=== PATIENT | male | born 1980 | race Caucasian/White ===

== ENCOUNTER → 2016-04-12 | Outpatient (REF) | payer MEDICARE, MEDICAID ==
[~2016-04-12] MED LIST: ABIL400I IM; CONC36TA4 PO; DEPA500T2 PO; GAS-80CH PO; INVE9TAB PO; TRAZ50TA4 PO
[2016-04-12 10:31] LABS: BASO % 0.6 % (0.0-1.0); EOS # 0.1 K/mm3 (0.0-0.50); EOS % 1.6 % (0.0-3.0); LARGE UNSTAINED CELL # 0.1 K/mm3 (0.0-0.4); LARGE UNSTAINED CELL % 1.8 % (0.0-4.0); LYMPH # 2.3 K/mm3 (1.5-4.5); LYMPH % 34.2 % (24.0-44.0); MEAN CORPUSCULAR HEMOGLOBIN 29.5 pg (27.0-33.0); MEAN CORPUSCULAR HGB CONC 34.1 g/dl (32.0-36.5); MEAN CORPUSCULAR VOLUME 86.7 fl (80.0-96.0); MONO # 0.3 K/mm3 (0.0-0.8); MONO % 4.8 % (0.0-5.0); NEUTROPHILS # 3.7 K/mm3 (1.8-7.7); NEUTROPHILS % 57.1 % (36.0-66.0); PLATELET COUNT, AUTOMATED 217 k/mm3 (150-450); RED CELL DISTRIBUTION WIDTH 12.5 % (11.5-14.5); WHITE BLOOD COUNT 6.4 K/mm3 (4.0-10.0)
[2016-04-12 11:03] LABS: ALBUMIN/GLOBULIN RATIO 1.18 (1.00-1.93); ALKALINE PHOSPHATASE 76 U/L (45-117); ALT/SGPT 52 U/L (12-78); ANION GAP 8 MEQ/L (8-16); AST/SGOT 21 U/L (15-37); BILIRUBIN,TOTAL 0.5 MG/DL (0.2-1.0); BLOOD UREA NITROGEN 13 MG/DL (7-18); CALCIUM LEVEL 8.8 MG/DL (8.5-10.1); CARBON DIOXIDE LEVEL 30 MEQ/L (21-32); CHLORIDE LEVEL 107 MEQ/L (98-107); CHOLESTEROL LEVEL 169 MG/DL (<200); CREATININE FOR GFR 1.05 MG/DL (0.70-1.30); GLOMERULAR FILTRATION RATE > 60.0 (>60); GLUCOSE, FASTING 100 MG/DL (70-105); POTASSIUM SERUM 4.1 MEQ/L (3.5-5.1); SODIUM LEVEL 145 MEQ/L (136-145); TOTAL PROTEIN 7.4 GM/DL (6.4-8.2); TRIGLYCERIDES LEVEL 51 MG/DL (<150)
== END ==
LOC: M SFHCPLAZ 08:24
PROVIDERS: ATTEND Nurse Practitioner Family
DX: Z00.00 Encounter for general adult medical examination without abnormal findings (principal); F41.8 Other specified anxiety disorders; Z13.220 Encounter for screening for lipoid disorders

== ENCOUNTER → 2017-03-07 | Outpatient (REF) | payer MEDICARE, MEDICAID ==
[2017-03-07 10:57] LABS: BASO % 0.5 % (0.0-1.0); EOS # 0.2 10^3/uL (0.0-0.50); HEMATOCRIT 48.8 % (42.0-52.0); HEMOGLOBIN 16.3 g/dl (14.0-18.0); IMMATURE GRANULOCYTE % 0.5 % (0-0); LYMPH # 2.4 10^3/uL (1.5-4.5); MEAN CORPUSCULAR HEMOGLOBIN 28.5 pg (27.0-33.0); MEAN CORPUSCULAR HGB CONC 33.4 g/dl (32.0-36.5); MEAN CORPUSCULAR VOLUME 85.5 fl (80.0-96.0); MONO # 0.7 10^3/uL (0.0-0.8); MONO % 7.6 % (0.0-5.0); NEUTROPHILS # 5.2 10^3/uL (1.8-7.7); NEUTROPHILS % 61.4 % (36.0-66.0); PLATELET COUNT, AUTOMATED 225 10^3/uL (150-450); RED BLOOD COUNT 5.71 10^6/uL (4.30-6.10); RED CELL DISTRIBUTION WIDTH 13.1 % (11.5-14.5); WHITE BLOOD COUNT 8.5 10^3/uL (4.0-10.0)
[2017-03-07 11:17] LABS: ALBUMIN 4.2 GM/DL (3.2-5.2); ALBUMIN/GLOBULIN RATIO 1.24 (1.00-1.93); ALKALINE PHOSPHATASE 74 U/L (45-117); ALT/SGPT 53 U/L (12-78); ANION GAP 7 MEQ/L (8-16); AST/SGOT 22 U/L (7-37); BILIRUBIN,TOTAL 0.6 MG/DL (0.2-1.0); BLOOD UREA NITROGEN 19 MG/DL (7-18); CALCIUM LEVEL 9.3 MG/DL (8.5-10.1); CARBON DIOXIDE LEVEL 32 MEQ/L (21-32); CHLORIDE LEVEL 104 MEQ/L (98-107); CREATININE FOR GFR 1.09 MG/DL (0.70-1.30); GLOMERULAR FILTRATION RATE > 60.0 (>60); GLUCOSE, FASTING 103 MG/DL (70-105); POTASSIUM SERUM 4.6 MEQ/L (3.5-5.1); SODIUM LEVEL 143 MEQ/L (136-145); TOTAL PROTEIN 7.6 GM/DL (6.4-8.2)
== END ==
LOC: M SFHCPLAZ 07:28
DX: F41.8 Other specified anxiety disorders (principal)
CPT/HCPCS: 80053

== ENCOUNTER → 2017-08-16 | Outpatient (REF) | payer MEDICARE, MEDICAID ==
[2017-08-16 11:56] LABS: BASO % 0.5 % (0.0-1.0); EOS # 0.2 10^3/uL (0.0-0.50); EOS % 2.2 % (0.0-3.0); HEMATOCRIT 48.5 % (42.0-52.0); HEMOGLOBIN 16.5 g/dl (13.5-17.5); IMMATURE GRANULOCYTE % 0.4 % (0-3.0); LYMPH # 2.5 10^3/uL (1.5-4.5); LYMPH % 32.9 % (24.0-44.0); MEAN CORPUSCULAR HEMOGLOBIN 28.9 pg (27.0-33.0); MEAN CORPUSCULAR VOLUME 85.1 fl (80.0-96.0); MONO # 0.7 10^3/uL (0.0-0.8); MONO % 8.8 % (0.0-5.0); NEUTROPHILS # 4.2 10^3/uL (1.8-7.7); NEUTROPHILS % 55.2 % (36.0-66.0); PLATELET COUNT, AUTOMATED 225 10^3/uL (150-450); RED CELL DISTRIBUTION WIDTH 12.6 % (11.5-14.5); WHITE BLOOD COUNT 7.6 10^3/uL (4.0-10.0)
[2017-08-16 12:38] LABS: ALBUMIN 4.2 GM/DL (3.2-5.2); ALBUMIN/GLOBULIN RATIO 1.24 (1.00-1.93); ALKALINE PHOSPHATASE 69 U/L (45-117); ALT/SGPT 46 U/L (12-78); ANION GAP 8 MEQ/L (8-16); AST/SGOT 20 U/L (7-37); BILIRUBIN,TOTAL 0.5 MG/DL (0.2-1.0); BLOOD UREA NITROGEN 16 MG/DL (7-18); CALCIUM LEVEL 9.3 MG/DL (8.5-10.1); CARBON DIOXIDE LEVEL 30 MEQ/L (21-32); CHLORIDE LEVEL 105 MEQ/L (98-107); CREATININE FOR GFR 1.24 MG/DL (0.70-1.30); GLOMERULAR FILTRATION RATE > 60.0 (>60); GLUCOSE, FASTING 117 MG/DL (70-100); POTASSIUM SERUM 4.2 MEQ/L (3.5-5.1); SODIUM LEVEL 143 MEQ/L (136-145); TOTAL PROTEIN 7.6 GM/DL (6.4-8.2)
[2017-08-16 12:42] LABS: TOTAL 25(OH) VITAMIN D 24.7 NG/ML (30.0-100.0)
[2017-08-16 13:37] LABS: ESTIMATED AVERAGE GLUCOSE 108 MG/DL (60-110); HEMOGLOBIN A1c 5.4 %
== END ==
LOC: M SFHCPLAZ 08:08
DX: Z51.81 Encounter for therapeutic drug level monitoring (principal); F06.34 Mood disorder due to known physiological condition with mixed features; Z79.899 Other long term (current) drug therapy
CPT/HCPCS: 80053

== ENCOUNTER → 2019-12-10 | Outpatient (CLI) | payer MEDICARE ==
[~2019-12-10] MED LIST changes: +TRAZ-252 PO; -TRAZ50TA4 PO
[2019-12-10 13:40] LABS: BASO % 0.4 % (0.0-1.0); EOS # 0.1 10^3/uL (0.0-0.5); EOS % 1.9 % (0.0-3.0); HEMATOCRIT 49.4 % (42.0-52.0); HEMOGLOBIN 16.6 g/dl (13.5-17.5); LYMPH # 2.6 10^3/uL (1.5-5.0); LYMPH % 35.2 % (24.0-44.0); MEAN CORPUSCULAR HGB CONC 33.6 g/dl (32.0-36.5); MEAN CORPUSCULAR VOLUME 89.2 fl (80.0-96.0); MONO # 0.6 10^3/uL (0.0-0.8); MONO % 7.8 % (0.0-5.0); NEUTROPHILS % 54.3 % (36.0-66.0); PLATELET COUNT, AUTOMATED 202 10^3/uL (150-450); RED BLOOD COUNT 5.54 10^6/uL (4.30-6.10); WHITE BLOOD COUNT 7.4 10^3/uL (4.0-10.0)
[2019-12-10 13:56] LABS: HEMOGLOBIN A1c 5.2 %
[2019-12-10 14:16] LABS: ALBUMIN 4.3 GM/DL (3.2-5.2); ALT/SGPT 65 U/L (12-78); BILIRUBIN,TOTAL 0.5 MG/DL (0.2-1.0); BLOOD UREA NITROGEN 16 MG/DL (7-18); CALCIUM LEVEL 9.3 MG/DL (8.5-10.1); CARBON DIOXIDE LEVEL 30 MEQ/L (21-32); CHLORIDE LEVEL 105 MEQ/L (98-107); CHOLESTEROL LEVEL 201 MG/DL (<200); CHOLESTEROL RISK RATIO 5.583 (<5); CREATININE FOR GFR 0.91 MG/DL (0.70-1.30); GLOMERULAR FILTRATION RATE > 60.0 (>60); GLUCOSE, FASTING 82 MG/DL (70-100); HDL CHOLESTEROL 36 MG/DL (>40); LDL CHOLESTEROL 152 MG/DL (<100); NON-HDL-C 165 MG/DL; POTASSIUM SERUM 4.1 MEQ/L (3.5-5.1); SODIUM LEVEL 139 MEQ/L (136-145); TOTAL PROTEIN 7.8 GM/DL (6.4-8.2); TRIGLYCERIDES LEVEL 66 MG/DL (<150)
[2019-12-10 14:18] LABS: TOTAL 25(OH) VITAMIN D 37.6 NG/ML (30.0-100.0); VITAMIN B12 LEVEL 469 PG/ML (247-911)
[2019-12-14 16:11] LABS: ARIPIPRAZOLE (ABILIFY) LEVEL 193.8 ng/mL (.)
== END ==
LOC: M WUC 09:58
PROVIDERS: ATTEND Nurse Practitioner Psychiatric/Mental Health
DX: F90.0 Attention-deficit hyperactivity disorder, predominantly inattentive type (principal)
CPT/HCPCS: 36415; 80053; 80061; 80360; 82306; 82607; 83036; 84439; 84443; 85025; G0480

== ENCOUNTER → 2021-02-01 | Outpatient (REF) | payer MEDICARE | LOC: M LAB REF 09:53 | PROVIDERS: ATTEND Physician Assistant Medical | DX: J02.9 Acute pharyngitis, unspecified (principal) ==

== ENCOUNTER → 2021-10-21 | Outpatient (CLI) | payer MEDICARE ==
[2021-10-21 10:42] LABS: BASO % 0.5 % (0.0-1.0); EOS # 0.2 10^3/uL (0.0-0.5); HEMATOCRIT 48.6 % (42.0-52.0); HEMOGLOBIN 16.4 g/dl (13.5-17.5); LYMPH % 37.6 % (24.0-44.0); MEAN CORPUSCULAR HEMOGLOBIN 29.3 pg (27.0-33.0); MEAN CORPUSCULAR HGB CONC 33.7 g/dl (32.0-36.5); MEAN CORPUSCULAR VOLUME 86.9 fl (80.0-96.0); MONO # 0.8 10^3/uL (0.0-0.8); MONO % 9.4 % (2.0-8.0); NEUTROPHILS % 50.1 % (36.0-66.0); PLATELET COUNT, AUTOMATED 199 10^3/uL (150-450); RED BLOOD COUNT 5.59 10^6/uL (4.30-6.10)
[2021-10-21 11:11] LABS: HEMOGLOBIN A1c 5.4 %
[2021-10-21 11:50] LABS: ALBUMIN 3.8 GM/DL (3.2-5.2); ALT/SGPT 33 U/L (12-78); BILIRUBIN,TOTAL 0.6 MG/DL (0.2-1.0); BLOOD UREA NITROGEN 19 MG/DL (7-18); CARBON DIOXIDE LEVEL 28 MEQ/L (21-32); CHLORIDE LEVEL 106 MEQ/L (98-107); CHOLESTEROL LEVEL 195 MG/DL (<200); CHOLESTEROL RISK RATIO 5.909 (<5); CREATININE FOR GFR 1.06 MG/DL (0.70-1.30); GLOMERULAR FILTRATION RATE > 60.0 (>60); GLUCOSE, FASTING 96 MG/DL (70-100); HDL CHOLESTEROL 33 MG/DL (>40); LDL CHOLESTEROL 146 MG/DL (<100); NON-HDL-C 162 MG/DL; POTASSIUM SERUM 4.1 MEQ/L (3.5-5.1); SODIUM LEVEL 142 MEQ/L (136-145); TOTAL PROTEIN 7.5 GM/DL (6.4-8.2); TRIGLYCERIDES LEVEL 81 MG/DL (<150)
== END ==
LOC: M PLALAB 07:52
DX: F90.2 Attention-deficit hyperactivity disorder, combined type (principal); Z79.899 Other long term (current) drug therapy

== ENCOUNTER 2021-11-14 11:18 | Emergency (ER) | payer OTHER, MEDICARE ==
[~2021-11-14] VITALS: Ht 188 cm; Wt 83.1 kg
[2021-11-14] MEDS ORDERED: LIDOCAINE 5% (LIDODERM) PATCH TD ONE (13:20)
[2021-11-14] MEDS ORDERED: KETOROLAC 60MG 2ML VIAL IM ONE (13:20)
[2021-11-14] MEDS ORDERED: METH-1165 PO (14:55)
[2021-11-14 15:05] VITALS: BP 128/74
[2021-11-15] MEDS ORDERED: **NOTE PATIENT COMMENT** MISC XX ONE (01:00)
== END 2021-11-14 15:06 | disposition home or self-care (01) ==
LOC: M ED 11:18
DX: M54.50 Low back pain, unspecified (principal); E78.5 Hyperlipidemia, unspecified; J45.909 Unspecified asthma, uncomplicated; K21.9 Gastro-esophageal reflux disease without esophagitis; Z88.1 Allergy status to other antibiotic agents; Z88.2 Allergy status to sulfonamides; Z88.8 Allergy status to other drugs, medicaments and biological substances; Z91.02 Food additives allergy status
CPT/HCPCS: 72110; 96372; 99283; J1885

== ENCOUNTER → 2022-02-23 | Outpatient (REF) | payer BC ==
[~2022-02-23] MED LIST changes: +METH-1165 PO
[2022-02-23 14:38] LABS: RSV AMPLIFICATION NEGATIVE (NEGATIVE)
== END ==
LOC: M LAB REF 12:12
PROVIDERS: ATTEND Physician Assistant
DX: R50.9 Fever, unspecified (principal)

== ENCOUNTER → 2022-12-26 | Outpatient (CLI) | payer MEDICARE ==
[2022-12-26 12:22] LABS: ALBUMIN 4.1 G/DL (3.2-5.2); ALKALINE PHOSPHATASE 64 U/L (46-116); ALT/SGPT 42 U/L (7.0-40); AST/SGOT 17 U/L (<34); BILIRUBIN,TOTAL 0.8 MG/DL (0.3-1.2); BLOOD UREA NITROGEN 18 MG/DL (9-23); CALCIUM LEVEL 8.9 MG/DL (8.5-10.1); CARBON DIOXIDE LEVEL 29 MMOL/L (20-31); CHLORIDE LEVEL 103 MMOL/L (98-107); CREATININE FOR GFR 0.99 MG/DL (0.70-1.30); GLOMERULAR FILTRATION RATE > 60.0 (>60); GLUCOSE, FASTING 96 MG/DL (60-100); POTASSIUM SERUM 4.2 MMOL/L (3.5-5.1); SODIUM LEVEL 139 MMOL/L (136-145); TOTAL 25(OH) VITAMIN D 104.1 NG/ML (20.0-100.0); TOTAL PROTEIN 6.9 G/DL (5.7-8.2)
[2022-12-26 15:34] LABS: ESTRADIOL 30.8 PG/ML (<39.8); TESTOSTERONE 435 NG/DL (241-827)
== END ==
LOC: M PLALAB 08:33
PROVIDERS: ATTEND Nurse Practitioner Adult Health
DX: E55.9 Vitamin D deficiency, unspecified (principal); F41.8 Other specified anxiety disorders; F52.4 Premature ejaculation

== ENCOUNTER → 2023-02-21 | Outpatient (REF) | payer MEDICARE | LOC: M LAB REF 16:41 | PROVIDERS: ATTEND Physician Assistant | DX: J02.9 Acute pharyngitis, unspecified (principal) ==

== ENCOUNTER 2023-05-28 12:45 | Inpatient (IN) | payer MEDICARE ==
[~2023-05-28] VITALS: Ht 188 cm; Wt 78.6 kg
[2023-05-28] MEDS ORDERED: VYVA50CA4 PO (13:13)
[2023-05-28] MEDS ORDERED: CIAL5TAB PO (13:41)
[2023-05-28] MEDS ORDERED: CIAL10TA PO (13:41)
[2023-05-28] MEDS ORDERED: INTU1TAB PO (13:41)
[2023-05-28] MEDS ORDERED: ARIP1TAB10 PO (13:41)
[2023-05-28] MEDS ORDERED: HOME MED LIST COMPLETE! XX SCH (13:45)
[2023-05-28 16:32] LABS: HEMOGLOBIN 14.7 g/dl (13.5-17.5); MEAN CORPUSCULAR HEMOGLOBIN 29.6 pg (27.0-33.0); MEAN CORPUSCULAR HGB CONC 34.2 g/dl (32.0-36.5); MEAN CORPUSCULAR VOLUME 86.7 fl (80.0-96.0); PLATELET COUNT, AUTOMATED 181 10^3/uL (150-450); RED BLOOD COUNT 4.96 10^6/uL (4.30-6.10); WHITE BLOOD COUNT 9.4 10^3/uL (4.0-10.0)
[2023-05-28 16:52] LABS: BARBITURATES URINE NEGATIVE (NEGATIVE); BENZODIAZEPINES URINE NEGATIVE (NEGATIVE); CANNABINOIDS URINE NEGATIVE (NEGATIVE); COCAINE METABOLITE URINE NEGATIVE (NEGATIVE); METHADONE URINE NEGATIVE (NEGATIVE); OPIATES URINE NEGATIVE (NEGATIVE); PHENCYCLIDINE URINE NEGATIVE (NEGATIVE)
[2023-05-28 16:54] LABS: AMPHETAMINES LEVEL URINE POSITIVE (NEGATIVE)
[2023-05-28 16:57] LABS: ETHYL ALCOHOL (ETHANOL) 0.006 % (0.000-0.010)
[2023-05-28 16:58] LABS: SALICYLATE LEVEL < 3.0 MG/DL (<30)
[2023-05-28 16:59] LABS: ALKALINE PHOSPHATASE 71 U/L (46-116); ALT/SGPT 33 U/L (7.0-40); AST/SGOT 27 U/L (<34); BILIRUBIN,DIRECT 0.4 MG/DL (<0.4); BILIRUBIN,TOTAL 1.1 MG/DL (0.3-1.2); BLOOD UREA NITROGEN 12 MG/DL (9-23); CARBON DIOXIDE LEVEL 28 MMOL/L (20-31); CHLORIDE LEVEL 104 MMOL/L (98-107); CREATININE FOR GFR 0.87 MG/DL (0.70-1.30); GLOMERULAR FILTRATION RATE > 60.0 (>60); GLUCOSE, FASTING 99 MG/DL (60-100); POTASSIUM SERUM 3.8 MMOL/L (3.5-5.1); SODIUM LEVEL 141 MMOL/L (136-145)
[2023-05-28 17:01] LABS: THYROID STIMULATING HORMONE 1.187 uIU/ML (0.55-4.78)
[2023-05-28] MEDS: HALOPERIDOL 5MG/ML 1ML VIAL IM ONE (23:06)
[2023-05-28] MEDS: LORazepam 2 MG/ML 1ML VIAL IM ONE (23:07)
[2023-05-28] MEDS: diphenhydrAMINE 50MG/ML VIAL IM ONE (23:07)
[2023-05-29] MEDS: ARIPiprazole 15 MG TAB (AbiLIFY) PO SCH (07:52)
[2023-05-29] MEDS ORDERED: ACETAMINOPHEN TAB 650MG DOSE (2X325MG) PO PRN (15:40)
[2023-05-29] MEDS ORDERED: MOM 30ML SUSPENSION UDC PO PRN (15:40)
[2023-05-29] MEDS ORDERED: OLANZapine ORAL DISINTEGRATING TAB 5MG PO PRN (15:40)
[2023-05-29] MEDS ORDERED: MAALOX 30 ML SUSP *UDC PO PRN (15:40)
[2023-05-29 16:44] VITALS: BP 115/74; TEMP 97.2; O2SAT 97
[2023-05-30 06:30] VITALS: BP_SYST 124; BP_SYST 135; BP_DIAS 71; BP_DIAS 74; TEMP 97; O2SAT 95; O2SAT 98
[2023-05-30] MEDS: ARIPiprazole 15 MG TAB (AbiLIFY) PO SCH (09:23)
[2023-05-30 18:30] VITALS: BP 116/74; TEMP 97
[2023-05-30] MEDS: traZODone 50 MG TAB PO PRN (20:52)
[2023-05-30] MEDS: OLANZapine 5 MG TAB PO SCH (20:52)
[2023-05-31 06:36] VITALS: BP 119/64; TEMP 98.5; O2SAT 97
[2023-05-31 15:54] VITALS: BP 119/82; TEMP 97.4; O2SAT 97
[2023-06-01] MEDS: diphenhydrAMINE 25MG CAP PO PRN (04:37)
[2023-06-01 05:35] VITALS: BP 116/72; TEMP 97.5; O2SAT 97
[2023-06-01] MEDS: LORazepam 2 MG/ML 1ML VIAL IM STA (22:37)
[2023-06-01] MEDS: HALOPERIDOL 5MG/ML 1ML VIAL IM STA (22:37)
[2023-06-01] MEDS: diphenhydrAMINE 50MG/ML VIAL IM STA (22:37)
[2023-06-01 22:55] VITALS: BP 142/90; TEMP 98.8; O2SAT 97
[2023-06-01 23:14] VITALS: BP 138/69; TEMP 98.1; O2SAT 95
[2023-06-01 23:25] VITALS: BP 111/74; TEMP 98.5; O2SAT 97
[2023-06-01 23:40] VITALS: BP 136/65; TEMP 98.5; O2SAT 97
[2023-06-01 23:55] VITALS: BP 131/61; TEMP 98.7; O2SAT 98
[2023-06-02 00:10] VITALS: BP 136/65; TEMP 98.4; O2SAT 95
[2023-06-02 00:25] VITALS: BP 133/72; TEMP 98.1; O2SAT 95
[2023-06-02 06:58] VITALS: BP 133/72; TEMP 98.1; O2SAT 95
[2023-06-02] MEDS: DIVALPROEX 250MG *ER* TAB PO SCH (11:41)
[2023-06-02] MEDS: OLANZapine 10 MG TAB PO SCH (11:41)
[2023-06-02 16:09] VITALS: BP 117/77; TEMP 97.4; O2SAT 100
[2023-06-02] MEDS: LORazepam 2 MG TAB PO PRN (18:01)
[2023-06-03 06:32] VITALS: BP 117/71; TEMP 97.8; O2SAT 97
[2023-06-03 16:14] VITALS: BP 153/76; TEMP 97.9; O2SAT 98
[2023-06-03] MEDS: IBUPROFEN 400MG TAB PO PRN (17:57)
[2023-06-04] MEDS: ARIPiprazole 15 MG TAB (AbiLIFY) PO SCH (08:52)
[2023-06-04 17:31] VITALS: BP 119/76; TEMP 97.8; O2SAT 96
[2023-06-05 06:24] VITALS: BP 116/73; TEMP 97.2; O2SAT 95
[2023-06-05 17:43] VITALS: BP 128/86; TEMP 96.8; O2SAT 96
[2023-06-06 06:15] VITALS: BP 122/75; TEMP 97.5; O2SAT 99
[2023-06-06] MEDS: ARIPiprazole MONOHYDRATE 400 MG INJ (ABILIFY)(FREE PSY INPT ONLY) IM ONE (11:09)
[2023-06-06] MEDS: diphenhydrAMINE 50MG CAP PO ONE (11:09)
[2023-06-06 17:18] VITALS: BP 128/73; TEMP 98.5; O2SAT 100
[2023-06-07] MEDS ORDERED: ARIP1TAB10 PO (10:23)
[2023-06-07] MEDS ORDERED: ABIL1INJ2 IM (13:05)
== END 2023-06-07 12:10 | disposition home or self-care (01) | DRG 885 ==
LOC: M ED 13:39 → M ED INP 05-29 15:40 → M PSY 05-29 16:40
PROVIDERS: ADMIT Student in an Organized Health Care Education/Training Program; ATTEND Student in an Organized Health Care Education/Training Program
DX: F31.2 Bipolar disorder, current episode manic severe with psychotic features (principal); N52.9 Male erectile dysfunction, unspecified; F63.9 Impulse disorder, unspecified; Z91.51 Personal history of suicidal behavior; Z81.1 Family history of alcohol abuse and dependence; Z87.891 Personal history of nicotine dependence; Z62.810 Personal history of physical and sexual abuse in childhood; Z79.899 Other long term (current) drug therapy; Z88.0 Allergy status to penicillin; Z88.2 Allergy status to sulfonamides; Z88.8 Allergy status to other drugs, medicaments and biological substances; Z91.048 Other nonmedicinal substance allergy status

== ENCOUNTER → 2024-04-17 | Outpatient (CLI) | payer MEDICARE ==
[~2024-04-17] MED LIST changes: +ABIL1INJ2 IM; +ARIP1TAB10 PO; +CIAL10TA PO; +CIAL5TAB PO; +INTU1TAB PO; +VYVA50CA4 PO
[2024-04-17 17:43] LABS: FOLATE 17.2 NG/ML (>5.4)
[2024-04-17 17:44] LABS: THYROID STIMULATING HORMONE 0.962 uIU/ML (0.55-4.78)
== END ==
LOC: M PLALAB 10:35
PROVIDERS: ATTEND Psychiatry & Neurology Neurology
DX: E53.8 Deficiency of other specified B group vitamins (principal); E03.9 Hypothyroidism, unspecified

== ENCOUNTER → 2025-01-08 | Outpatient (CLI) | payer MEDICARE ==
[~2025-01-08] MED LIST changes: -ABIL400I IM; +ARIP400S IM
[2025-01-08 13:39] LABS: ALT/SGPT 36 U/L (7.0-40); AST/SGOT 20 U/L (<34); CALCIUM LEVEL 9.2 MG/DL (8.5-10.1); CARBON DIOXIDE LEVEL 31 MMOL/L (20-31); CHLORIDE LEVEL 105 MMOL/L (98-107); CREATININE FOR GFR 0.98 MG/DL (0.70-1.30); GLOMERULAR FILTRATION RATE > 90.0 (>60); POTASSIUM SERUM 4.4 MMOL/L (3.5-5.1); SODIUM LEVEL 145 MMOL/L (136-145)
== END ==
LOC: M PLALAB 10:36
PROVIDERS: ATTEND Nurse Practitioner Adult Health
DX: F41.8 Other specified anxiety disorders (principal)